=== PATIENT | female | born 1955 | race Caucasian/White ===

== ENCOUNTER 2017-05-23 13:50 | Inpatient (IN) | payer OTHER ==
[~2017-05-23] VITALS: Ht 177.8 cm; Wt 66.0 kg
[2017-05-26] MEDS ORDERED: ACYC-101 PO (08:35)
[2017-05-26] MEDS ORDERED: ESTR42.5V VAGINAL (08:35)
[2017-05-26] MEDS ORDERED: CALCTAB32 PO (08:35)
[2017-05-26] MEDS ORDERED: FEXO1TAB97 PO (08:35)
[2017-06-06] MEDS ORDERED: LACTATED RINGER'S 1000 ML IV PRN (05:30)
[2017-06-06] MEDS ORDERED: SODIUM CHLORID 0.9% 500 ML IV PRN (05:30)
[2017-06-06] MEDS ORDERED: POVIDONE IODINE 5% (ANTISEPSIS KIT) 4 APPLICATIONS EACH NARE PRN (05:30)
[2017-06-06] MEDS ORDERED: CHLORHEXIDINE GLUCONATE 2 % 1 PACK (2 CLOTHS) TOPICAL PRN (05:30)
[2017-06-06] MEDS ORDERED: INSULIN HUMAN REGULAR 1,000 UNITS/10 ML VIAL SQ PRN (05:30)
[2017-06-06] MEDS ORDERED: METOPROLOL TARTRATE 25 MG TAB PO PRN (05:30)
[2017-06-06] MEDS ORDERED: VANCOMYCIN 1000 MG/NS 250 ML (for <70 kg) IV SCH ×2 (05:45)
[2017-06-06] MEDS ORDERED: ceFAZolin 2 GM PREMIX 50 ML IV SCH (05:45)
[2017-06-06] MEDS ORDERED: CHLORHEXIDINE GLUCONATE 4% SOLN 120 ML BTL TOPICAL SCH (05:45)
[2017-06-06] MEDS ORDERED: TRANEXAMIC ACID INJ 900 MG in SODIUM CHLORIDE 0.9% INJ 100 ML IV SCH (06:00)
[2017-06-06] MEDS ORDERED: EXPAREL PERI-ARTICULAR INJECTION (TOTAL VOL. 60 ML) P-ARTICULR SCH ×2 (06:00)
[2017-06-06] MEDS ORDERED: DEXAMETHASONE SOD PHOS 4 MG/ML VIAL ONE (06:20)
[2017-06-06] MEDS ORDERED: FAMOTIDINE 20 MG/2 ML VIAL ONE (06:20)
[2017-06-06] MEDS ORDERED: ACETAMINOPHEN 1000 MG/100 ML 100 ML IV ONE (06:20)
[2017-06-06] MEDS ORDERED: GENTAMICIN SULFATE 80 MG/2 ML VIAL ONE (06:30)
[2017-06-06] MEDS ORDERED: APREPITANT 40 MG CAP ONE (06:35)
[2017-06-06] MEDS ORDERED: XARE10TA PO (07:21)
[2017-06-06] MEDS ORDERED: HYDR-3583 PO (07:21)
--- NOTE | 2017-06-06 07:22 | HHI.FF ---
Face to Face Verification Diagnosis: (1) Status post hip replacement Physical Therapy Gait training Hip: Total hip, Protocol: Left Right LE Weight Bearing: WB as tolerated Left LE Weight Bearing: WB as tolerated Nursing Nursing: Dressing changes Dressing Changes: Coverderm/Primapore (begin adding xeroform POD 10) I have seen patient Jayne Verma February on 06/06/17. My clinical findings support the need for the requested home health care services because: Ltd mobility - disease progression I certify that my clinical findings support that this patient is homebound because: Post-op weakness Virgilio Gould Jun 06, 2017 07:22
[2017-06-06] MEDS ORDERED: MORPHINE SULFATE 4 MG/ML INJ IV PUSH PRN (08:45)
[2017-06-06] MEDS ORDERED: ACETAMINOPHEN/HYDROcodone 325 MG/7.5 MG TAB PO PRN (08:45)
[2017-06-06] MEDS ORDERED: NALOXONE HCL 0.4 MG/ML AMP IV PRN (08:45)
[2017-06-06] MEDS ORDERED: Post-op Orders (for Pharmacy) MISC XX ONE (08:45)
[2017-06-06] MEDS ORDERED: SODIUM CHLORIDE 0.9% FLUSH 5 ML FLUSH IVF PRN (08:45)
--- NOTE | 2017-06-06 08:49 | PD.OP ---
cc: Pete Diaz MD Operative Report Date of Surgery: Jun 06, 2017 Preoperative Diagnosis: Severe left hip osteoarthritis Postoperative Diagnosis: Procedure: Left total hip arthroplasty by anterior approach Anesthesia: Gen. Surgeon: Pete Diaz Produce Team Member(s): SUNNI Marquez PA-C The surgical procedure was assisted by my physician store administrative assistant. My P.A. presence was necessary throughout this case for the manipulation and positioning of the surgical extremity. My P.A. was assisting me throughout the duration of this procedure. The skill set of a physician store administrative assistant was medically necessary to complete this procedure. During the surgical case the surgical dressing maker was working at the back table and the physician store administrative assistant was directly assisting me. Operation and Findings: PLAN OF ACTIVITY Weight bear as tolerated. DRAINS: 7-mm YOSEF drain. IMPLANTS USED DePuy Corail size [13] collared stem with a size [50] Brixey Gription cup, [50 /32] Altrx poly liner, and a [32 +1.5] ceramic Biolox ceramic head. DETAILS OF PROCEDURE: This patient has a long history of hip pain. Patient was found to have severe osteoarthritis. The patient had radiographic evidence of joint space narrowing with [id number] arthritis and osteophytes around the acetabulum as well as the femoral head. There was also some cystic changes. The patient failed conservative treatment with pain medications, anti-inflammatories, physical therapy, assistive devices including a cane, as well as therapeutic injection of the hip. Patient's hip arthritis was limiting his ability to ambulate and perform activities of daily living. The patient wished to proceed with surgery and informed consent was obtained. Operative site was marked. I discussed both posterior approach and anterior approach with the patient and decision was made for anterior approach. Patient was brought to OR and placed on OR table. IV sedation and general anesthesia was administered by anesthesiologist. Patient positioned on a Naomie table and was given IV antibiotics. Time-out procedure was performed. The hip and thigh were prepped with alcohol followed by Hibiclens. The thigh was draped in the usual sterile fashion. Clean Air Suite was used for this procedure. The procedure began with a 5-inch incision over the anterolateral thigh. Subcutaneous tissue was dissected with Bovie. The fascia over the tensa fasciae latae was incised. Care was taken to avoid injury to the lateral femoral cutaneous nerve. The tensor muscle was retracted laterally. Sartorius was retracted medially. Retractors were now placed. The reflected head of the rectus is now elevated. A capsulotomy was performed over the anterior head capsule. Sutures were placed to help retract the capsule. At this point the femoral head and neck were identified. With soft tissue protected, oscillating saw was used to make a cut through the femoral neck, the femoral head was now removed. At this point attention was turned to preparation of the acetabulum. The labrum was excised. The acetabulum was sequentially reamed up to size [50]. A Brixey cup was now placed. Fluoroscopy was used to aid in identification of appropriate version. Cup was fully impacted and found to have excellent fit. Hole eliminator was now placed. The liner was now impacted into the cup. At this point the hip was externally rotated. A hook was placed around the proximal femur. The capsule was released off the lateral and medial femur. The hip was now extended and adducted. Retractors were placed around the proximal femur to allow for exposure. A box osteotome was used to remove the lateral cortex of the femoral neck. A broach was used to help lateralize the prosthesis. Canal finder was used to create a path down the canal. Next, the canal was sequentially broached up to size 13. This was found to be an excellent fit. Calcar planer was placed. A standard head was placed, and the hip was reduced. The hip was found to have excellent stability with good range of motion. The leg lengths were measured under fluoroscopy and found to be equal compared to preoperatively. Trial broach was removed. The Corail stem was opened. Stem was fully impacted into the proximal femur in appropriate version. The femoral head was placed. The hip was again reduced. Fluoroscopy confirmed excellent alignment of prosthesis. The wound was thoroughly irrigated and capsule was closed with #1 Vicryl. The fascia over the tensor fasciae muscle was closed with #1 Vicryl, subcutaneous tissue was closed with 3-0 Vicryl and the skin was closed with néstor and Dermabond skin closure. The capsule layers, muscle, and subcutaneous tissue were injected with a mixture of saline and bupivicaine. Dressings were applied. The patient was transferred to Recovery Room in stable condition. Pete Diaz MD Jun 06, 2017 08:49
[2017-06-06] MEDS ORDERED: DO NOT ADM ANY ANTICOAGULANT DRUGS PRN (09:09)
[2017-06-06] MEDS ORDERED: MIDAZOLAM HCL 2 MG/2 ML VIAL ONE (09:20)
[2017-06-06] MEDS ORDERED: fentaNYL CITRATE 250 MCG/5 ML AMP ONE (09:24)
[2017-06-06] MEDS: ACYCLOVIR 800 MG TAB PO SCH ×2 (09:30→20:38)
[2017-06-06] MEDS ORDERED: ALLEGRA D PO SCH (09:30)
[2017-06-06] MEDS ORDERED: CALCIUM CITRATE PO SCH (09:30)
[2017-06-06] MEDS ORDERED: CHOLECALCIFEROL PO SCH (09:30)
[2017-06-06] MEDS: LACTATED RINGER'S 1000 ML INJ 1,000 ML IV SCH ×2 (09:33→20:37)
[2017-06-06] MEDS ORDERED: *morphine SULFATE 8 MG/ML PERIprocedure ONLY ONE (10:13)
[2017-06-06] MEDS: KETOROLAC TROMETHAMINE 30 MG/ML (IVP) VIAL IV PUSH SCH ×2 (10:23→20:37)
--- NOTE | 2017-06-06 10:24 | RADRPT ---
EXAM DATE/TIME: 06/06/2017 09:26 [facility] COMPARISON: No previous studies available for comparison. INDICATIONS : Post-op total left hip arthroplasty. MEDICAL HISTORY : None. SURGICAL HISTORY : Total right hip arthroplasty. ENCOUNTER: Initial ACUITY: 1 day PAIN SCORE: 4/10 LOCATION: Left hip. FINDINGS: There is a surgical drain overlying the left hip as well as superficial surgical néstor. Total left hip prosthesis is in place well seated with right total hip prosthesis in place well seated and the p ronit itself is intact. CONCLUSION: Bilateral total hip prosthesis in place well seated with surgical drain overlying the left hip and dunlap perficial left surgical néstor. Jamison Gayle MD on June 06, 2017 at 10:21 Board Certified Radiologist. This report was verified electronically.
[2017-06-06] MEDS ORDERED: TRANEXAMIC ACID INJ 1,000 MG in SODIUM CHLORIDE 0.9% INJ 100 ML IV SCH (11:00)
[2017-06-06] MEDS ORDERED: NEOSTIGMINE 3 MG/3 ML SYR IV ONE (12:00)
[2017-06-06] MEDS ORDERED: PROPOFOL 200 MG/20 ML AMP IV ONE (12:00)
[2017-06-06] MEDS ORDERED: LACTATED RINGER'S 1000 ML INJ 1,000 ML IV ONE (12:00)
[2017-06-06] MEDS ORDERED: ONDANSETRON HCL 4 MG/2 ML VIAL IV PUSH ONE (12:00)
[2017-06-06] MEDS ORDERED: ePHEDrine/NS 25 MG/5 ML SYR IV ONE (12:00)
[2017-06-06] MEDS ORDERED: *ONDANSETRON 4 MG VIAL PERIprocedural Use ONLY ONE (12:14)
[2017-06-06] MEDS: ceFAZolin 2 GM PREMIX 50 ML IV SCH ×2 (13:30→20:37)
[2017-06-06 13:54] VITALS: BP 108/66; PULSE 68; RESP 18; TEMP 95.6; O2SAT 97
--- NOTE | 2017-06-06 15:06 | RADRPT ---
EXAM DATE/TIME: 06/06/2017 08:20 [facility] COMPARISON: No previous studies available for comparison. INDICATIONS : Left total hip arthroplasty. MEDICAL HISTORY : None. SURGICAL HISTORY : Right total hip arthroplasty. ENCOUNTER: Initial ACUITY: 1 day PAIN SCORE: Non-responsive. LOCATION: Left hip FINDINGS: 2 magnified C-arm spot views are centered over the hip and labeled left. A left hip prosthesis is see n and is in good position. CONCLUSION: Limited images as detailed above. Norm Fischer Jr., MD on June 06, 2017 at 15:04 Board Certified Radiologist. This report was verified electronically.
[2017-06-06 16:00] VITALS: BP 118/70; PULSE 70; RESP 18; TEMP 96.2; O2SAT 97
[2017-06-06] MEDS: ONDANSETRON HCL 4 MG/2 ML VIAL IVP PRN (17:28)
[2017-06-06] MEDS: VANCOMYCIN INJ 1,000 MG in SODIUM CHLOR 0.9% 250 ML INJ 250 ML IV SCH (17:31)
[2017-06-06 19:35] VITALS: BP 122/59; PULSE 71; RESP 16; TEMP 97.6; O2SAT 98
[2017-06-06 20:10] VITALS: O2SAT 96
[2017-06-06] MEDS: SODIUM CHLORIDE 0.9% FLUSH 5 ML FLUSH IVF SCH (20:39)
[2017-06-07] VITALS (8 sets, daily range): BP systolic 90–118; BP diastolic 51–64; PULSE 63–78; RESP 16–18; TEMP 96.9–98.6; O2SAT 94–98
[2017-06-07] MEDS: ceFAZolin 2 GM PREMIX 50 ML IV SCH (02:30)
[2017-06-07] MEDS: VANCOMYCIN INJ 1,000 MG in SODIUM CHLOR 0.9% 250 ML INJ 250 ML IV SCH (05:06)
[2017-06-07] MEDS: ONDANSETRON HCL 4 MG/2 ML VIAL IVP PRN (06:31)
--- NOTE | 2017-06-07 06:44 | PD.ORT.PN ---
Subjective Subjective Remarks Doing well status post left total hip arthroplasty. She has had difficulty with nausea since surgery. She has not been able to produce and has been dry heaves. States that she is feeling better today. She has no pain with her hip. Objective Vitals Vital Signs Date Time Temp Pulse Resp B/P (MAP) Pulse Ox O2 Delivery O2 Flow Rate FiO2 06/07/17 04:48 96 06/07/17 00:10 98.6 78 16 98/53 (68) 96 06/06/17 20:10 96 06/06/17 19:35 97.6 71 16 122/59 (80) 98 06/06/17 16:00 96.2 70 18 118/70 (86) 97 06/06/17 13:54 95.6 68 18 108/66 (80) 97 06/06/17 13:40 61 18 101/57 (72) 95 Room Air 06/06/17 13:00 97.8 65 17 102/58 (73) 95 Room Air 06/06/17 12:00 63 17 109/57 (74) 100 Nasal Cannula 2 06/06/17 11:30 18 06/06/17 11:00 62 17 121/63 (82) 100 Nasal Cannula 2 06/06/17 10:45 56 16 118/60 (79) 100 Nasal Cannula 3 06/06/17 10:30 57 17 123/60 (81) 100 Nasal Cannula 3 06/06/17 10:15 52 17 120/57 (78) 100 Nasal Cannula 3 06/06/17 10:00 55 16 125/61 (82) 100 Nasal Cannula 3 06/06/17 09:45 56 16 116/57 (76) 100 Nasal Cannula 3 06/06/17 09:30 60 15 114/59 (77) 100 Nasal Cannula 3 06/06/17 09:13 97.5 82 15 130/67 (88) 100 Nasal Cannula 4 I/O 06/06/17 06/06/17 06/06/17 06/07/17 06/07/17 06/07/17 06:59 14:59 22:59 06:59 14:59 22:59 Intake Total 3680 ml 240 ml Output Total 815 ml 30 ml Balance 2865 ml 210 ml Intake Oral 130 ml 240 ml IV Total 2150 ml Other 1400 ml Output Urine Total 325 ml Drainage Total 90 ml 30 ml Estimated Blood Loss 400 ml # Voids 1 # Bowel Movements 0 Imaging Last 24 hours Impressions Hip and Pelvis X-Ray 06/06/17 0845 Signed Impressions: Service Date/Time: Tuesday, June 06, 2017 09:26 - CONCLUSION: Bilateral total hip prosthesis in place well seated with surgical drain overlying the left hip and superficial left surgical néstor. Jamison Gayle MD Objective Remarks Left lower extremity: Clean dry dressings intact with drain in place. Minimal pain with passive range of motion of hip. Distally intact sensation good capillary refills strong dorsiflexion plantar flexion foot Assessment & Plan Assessment and Plan Left total hip arthroplasty anterior approach POD 1 Physical therapy weightbearing as tolerated twice a day DC drain and dressing change after physical therapy today Lovenox Incentive spirometry SCDs and PREETHI almaraz Plan on discharge tomorrow to home with home health care if cleared by physical therapy and doing well with pain Continue Phenergan for nausea By mouth pain meds as needed, avoid IV morphine Follow-up Dr. Diaz or PA in 2 weeks Jameson Antony Jr. Jun 07, 2017 06:43
[2017-06-07 07:42] LABS: HEMATOCRIT 29.8 % (35.0-46.0); REVIEW FLAG FINAL
[2017-06-07] MEDS: ENOXAPARIN SODIUM 40 MG/0.4 ML SYRINGE SQ SCH (08:24)
[2017-06-07] MEDS: ACYCLOVIR 800 MG TAB PO SCH ×2 (08:24→21:04)
[2017-06-07] MEDS: ACETAMINOPHEN/HYDROcodone 325 MG/10 MG TAB PO PRN ×2 (08:25→18:29)
[2017-06-07] MEDS: SODIUM CHLORIDE 0.9% FLUSH 5 ML FLUSH IVF SCH ×2 (09:00→21:00)
[2017-06-07] MEDS: PROMETHAZINE INJ 25 MG/ML VIAL IM PRN (10:10)
[2017-06-07] MEDS: KETOROLAC TROMETHAMINE 30 MG/ML (IVP) VIAL IV PUSH SCH ×2 (10:11→21:04)
[2017-06-07] MEDS: DOCUSATE SODIUM 100 MG CAP PO SCH (21:03)
[2017-06-07] MEDS: LACTATED RINGER'S 1000 ML INJ 1,000 ML IV SCH (21:05)
[2017-06-08 00:35] VITALS: BP 94/50; PULSE 69; RESP 16; TEMP 98.5; O2SAT 95
[2017-06-08] MEDS: ACETAMINOPHEN/HYDROcodone 325 MG/10 MG TAB PO PRN (02:04)
[2017-06-08 03:28] VITALS: O2SAT 95
[2017-06-08 03:30] VITALS: BP 103/59; PULSE 62; RESP 16; TEMP 98.3; O2SAT 95
--- NOTE | 2017-06-08 06:56 | PD.ORT.PN ---
Subjective Subjective Remarks POD 2 s/p Left DOUG doing well. reports that nausea has subsided and feels much better. out of bed on own and going to bathroom. States ready to go home today Objective Vitals Vital Signs Date Time Temp Pulse Resp B/P (MAP) Pulse Ox O2 Delivery O2 Flow Rate FiO2 06/08/17 03:30 98.3 62 16 103/59 (74) 95 06/08/17 03:28 95 06/08/17 00:35 98.5 69 16 94/50 (65) 95 06/07/17 19:35 97.8 76 16 94/51 (65) 94 06/07/17 16:00 96.9 64 18 90/55 (67) 98 06/07/17 12:00 98.4 63 17 102/58 (73) 98 06/07/17 12:00 18 06/07/17 11:32 94 06/07/17 09:30 18 06/07/17 08:00 98.5 69 18 118/64 (82) 97 I/O 06/07/17 06/07/17 06/07/17 06/08/17 06/08/17 06/08/17 06:59 14:59 22:59 06:59 14:59 22:59 Intake Total 1020 ml 1580 ml 480 ml 720 ml Output Total 80 ml 50 ml Balance 940 ml 1530 ml 480 ml 720 ml Intake Oral 1580 ml 480 ml 720 ml IV Total 1020 ml Drainage Total 80 ml 50 ml # Voids 3 2 4 # Bowel Movements 0 0 0 Result Diagram: 06/07/17 0445 Imaging Last 24 hours Impressions Hip and Pelvis X-Ray 06/06/17 0823 Signed Impressions: Service Date/Time: Tuesday, June 06, 2017 09:26 - CONCLUSION: Bilateral total hip prosthesis in place well seated with surgical drain overlying the left hip and superficial left surgical néstor. Jamison Gayle MD Objective Remarks Left lower extremity: Clean dry dressings intact with drain in place. Minimal pain with passive range of motion of hip. Distally intact sensation good capillary refills strong dorsiflexion plantar flexion foot Assessment & Plan Assessment and Plan 1) Left total hip arthroplasty anterior approach POD 2 Physical therapy weightbearing as tolerated twice a day Lovenox Incentive spirometry SCDs and PREETHI almaraz Discharge home today with [facility] Continue Phenergan for nausea PRN By mouth pain meds as needed, avoid IV morphine Follow-up Dr. Diaz or PA in 2 weeks Virgilio Gould Jun 08, 2017 06:56
[2017-06-08] MEDS ORDERED: PROM25TA10 PO (06:58)
--- NOTE | 2017-06-08 07:22 | HHI.DS ---
Discharge Summary Admission Date Jun 06, 2017 at 05:16 Discharge Date: Jun 08, 2017 Admitting Diagnosis Left hip osteoarthritis Diagnosis: (1) Status post hip replacement Diagnosis: Principal ICD Codes: Z96.649 - Presence of unspecified artificial hip joint Procedures Left anterior total hip arthroplasty CBC/BMP: 06/07/17 0445 Significant Findings Laboratory Tests Test 06/07/17 04:45 Hemoglobin 10.1 GM/DL (11.6-15.3) Hematocrit 29.8 % (35.0-46.0) PE at Discharge Left lower extremity: Clean dry dressings intact with drain in place. Minimal pain with passive range of motion of hip. Distally intact sensation good capillary refills strong dorsiflexion plantar flexion foot Hospital Course Patient admitted on June 06 for an elective left total hip arthroplasty. She tolerated the procedure well. She was admitted 6 north. She was out of bed on postoperative day 0 when ambulating. She had significant nausea and vomiting on postoperative day 0. She was switched to Phenergan which seemed to help significantly. By postoperative day 2 her nausea was completely resolved, she was ambulating on her own, she was going to the bathroom, her pain was controlled, she was hemodynamically stable and fit for discharge home. She'll be discharged home today with home health care. She will remain fully weightbearing. She'll do daily dressing changes and keep her incision clean and dry. She'll follow-up in the office of Dr. Diaz or his PA in 2 weeks Pt Condition on Discharge: Good Discharge Disposition: Disch w/ Home Health Serv Discharge Instructions Diet Instructions: As Tolerated, No Restrictions Activities You Can Perform: Weight Bearing as Kareem Follow up Referrals: Orthopedics - 2 Weeks @ [facility] with Pete Diaz MD [facility]/ with [facility] New Medications: Hydrocodone-Acetaminophen (Hydrocodone-Acetaminophen) 10-325 mg Tab 1 TAB PO Q4H PRN for PAIN, #60 TAB 0 Refills Promethazine (Phenergan) 25 Mg Tablet 25 MG PO Q6H PRN for NAUSEA OR VOMITING for 10 Days, #40 TAB 0 Refills Rivaroxaban (Xarelto) 10 Mg Tab 10 MG PO DAILY for Blood Clot Prevention for 14 Days, TAB 0 Refills Continued Medications: Acyclovir (Zovirax) 800 Mg Tab 800 MG PO BID for herpes, TAB 0 Refills Calcium Citrate-Vitamin D (Calcium Citrate + D) 315-200 Mg-Unit Tab 1 TAB PO BID for Nutritional Supplement, TAB Estradiol Vaginal (Estrace Vaginal) 0.01% Cream 1 APPL VAGINAL morian fr for Estrogen Supplements, #1 TUBE 0 Refills Fexofenadine-Pseudoephedrine ER 24 HR (Jaclyn-D 24 Hour Allergy) 180-240 Marques 1 TAB PO DAILY for Allergy Management, #30 TAB 0 Refills Virgilio Gould Jun 08, 2017 07:22
[2017-06-08] MEDS: DOCUSATE SODIUM 100 MG CAP PO SCH (07:36)
[2017-06-08] MEDS: ACYCLOVIR 800 MG TAB PO SCH (07:36)
[2017-06-08] MEDS: ENOXAPARIN SODIUM 40 MG/0.4 ML SYRINGE SQ SCH (07:36)
[2017-06-08 08:00] VITALS: BP 115/65; PULSE 66; RESP 18; TEMP 97.8; O2SAT 100
[2017-06-08 08:09] VITALS: RESP 16
[2017-06-08] MEDS: PROMETHAZINE INJ 25 MG/ML VIAL IM PRN (08:14)
[2017-06-08] MEDS: SODIUM CHLORIDE 0.9% FLUSH 5 ML FLUSH IVF SCH (09:00)
[2017-06-08] MEDS: LACTATED RINGER'S 1000 ML INJ 1,000 ML IV SCH (10:23)
== END 2017-06-08 11:31 | disposition home health service (06) | DRG 470 ==
LOC: HSDI 06-06 05:16 → N06B 06-06 13:55
PROVIDERS: ADMIT Orthopaedic Surgery Orthopaedic Trauma; ATTEND Orthopaedic Surgery Orthopaedic Trauma
PROC: 0SRB04Z Replacement of Left Hip Joint with Ceramic on Polyethylene Synthetic Substitute, Open Approach (ICD-10-PCS; principal; 2017-06-06 06:43)
DX: M16.12 Unilateral primary osteoarthritis, left hip (principal); M25.752 Osteophyte, left hip; R11.2 Nausea with vomiting, unspecified; Z87.891 Personal history of nicotine dependence
CPT/HCPCS: 73501; 73502; 76000; 85014; 85018; 86850; 86900; 86901; C1776; C9290; J0131; J0690; J1100; J1580; J1650; J1885; J2250; J2270; J2405; J2550; J2710; J3010; J3370; J7050; J7120; J8501

== ENCOUNTER → 2017-05-26 | Outpatient (CLI) | payer OTHER ==
[~2017-05-26] MED LIST: ACYC-1 PO; ACYC-101 PO; CALCTAB32 PO; CALCTAB75 PO; ESTR42.5V PV; ESTR42.5V VAGINAL; FEXO180 PO; FEXO1TAB97 PO; HYDR-3583 PO; PROM25TA10 PO; RIVA10 PO; ULTR50TA PO; WALKER STANDARD; XARE10TA PO
== END ==
LOC: CPRE 07:58
PROVIDERS: ATTEND Orthopaedic Surgery Orthopaedic Trauma
DX: Z01.810 Encounter for preprocedural cardiovascular examination (principal); Z01.811 Encounter for preprocedural respiratory examination; Z01.812 Encounter for preprocedural laboratory examination; Z01.818 Encounter for other preprocedural examination; Z79.01 Long term (current) use of anticoagulants; Z96.60 Presence of unspecified orthopedic joint implant; Z13.9 Encounter for screening, unspecified; M79.609 Pain in unspecified limb